=== PATIENT | female | born 1960 | race Caucasian/White ===

== ENCOUNTER 2016-12-01 19:44 | Emergency (ER) | payer OTHER ==
[~2016-12-01] VITALS: Ht 170.2 cm; Wt 113.4 kg
[~2016-12-01 19:44] MED LIST: ABILIFY5 M1 PO; ALPRAZOLAM0.5 MG PO; ATORVASTATIN CA20 MG PO; BALANCED B COM1 EACH PO; COENZYME Q PO; CYMBALTA 30 MG30 MG PO; DULOXETINE HYDR30 MG PO; DULOXETINE30 MG PO; FOLIC ACID 1 MG PO; HYDROCHLOROTHIA50 M1 PO; LEXAPRO20 M1 PO; LINZESS145 MC1 PO; MASON NATURAL1200 MG PO; NEURONTIN400 MG PO; PAXIL40 MG PO; PRILOSEC 20MG C20 MG PO; TOPAMAX50 M1; TRAZODONE100 MG PO; VITAMIN B1100 MG PO; VITAMIN E400 IU PO; XANAX0.5 MG PO
[2016-12-01 20:15] VITALS: BP 00/00
--- NOTE | 2016-12-01 20:21 | ED CRITICAL CARE ---
History of Present Illness General Chief Complaint: Cardiopulmonary Resuscitation Stated Complaint: BIBA FOR CPR Source: EMS Exam Limitations: unable to give history Vital Signs & Intake/Output Vital Signs & Intake/Output Vital Signs Date Time Temp Pulse Resp B/P B/P Pulse O2 O2 Flow FiO2 Mean Ox Delivery Rate 12/01 2014 0 00/00 12/01 1954 157/86 ED Intake and Output 12/02 0000 12/01 1200 Intake Total 850 Output Total Balance 850 Intake, IV 850 Patient 250 lb Weight Weight Estimated Measurement Method Allergies Coded Allergies: ibuprofen (Intermediate, GI UPSET 12/07/15) Reconcile Medications Aripiprazole (Abilify) 5 MG TABLET 1 TAB PO DAILY MENTAL HEALTH (Reported) Escitalopram Oxalate (Lexapro) 20 MG TABLET 1 TAB PO DAILY MENTAL HEALTH ( Reported) Folic Acid 1 MG TAB 1 TAB PO DAILY SUPPLEMENT Hydrochlorothiazide 50 MG TABLET 1 TAB PO DAILY WATER PILL (Reported) Linaclotide (Linzess) 145 MCG CAPSULE 1 CAP PO DAILY IBS (Reported) Topiramate (Topamax) (Unknown Strength) TABLET (Unknown Dose) TID MENTAL HEALTH (Reported) Vitamin B Complex & Vit C No.3 (Balanced B Complex-Vit C) 1 EACH TABLET.ER 1 TAB PO DAILY SUPPLEMENT (Reported) Triage Nurses Notes Reviewed? yes Onset: LAST SEEN APPROXIMATELY 10-15 MINUTES PRIOR TO 911 CALL Duration: minute(s): Timing: single episode today Severity: severe Pain Location: UNKNOWN Method of Injury: unknown Associated Symptoms: unresponsive HPI: 56 yo woman was found by EMS apneic and asystolic at approximately 18:59. Per the medics, drug paraphenalia and empty alcohol bottles were found around her. She was asystolic and apneic upon the medics arrival. They noted copious amounts of food in oropharynx. She was intubated with a combi tube. She received epi x 6 in the field. Narcan 4mg iv in field. No effect. Glucose was 250's. She arrived in ED at 19:44. In getting history from her roomate, Bahman Jacobsen, he states, "I think she was choking on food or whatever... She started blanking out... or was OD'ing on heroin." Per her daughter, "I talked to her a few hours ago and she was fine." Past History Travel History Traveled to [place] past 21 day No Medical History Any Pertinent Medical History? see below for history Neurological: NONE EENT: NONE Cardiovascular: hypertension Respiratory: NONE Gastrointestinal: NONE Hepatic: NONE Renal: NONE Musculoskeletal: NONE Psychiatric: alcohol dependence, anxiety, depression, substance abuse Endocrine: NONE Blood Disorders: NONE Cancer(s): NONE NATIONAL EXPANSION RECRUITER/Reproductive: NONE History of MRSA: No History of VRE: No History of CDIFF: No Surgical History Surgical History: unobtainable Psychosocial History What is your primary language [place] Family History Hx Contributory? No Review of Systems Review of Systems Constitutional: Reports: no symptoms. Eyes: Reports: no symptoms. Ears, Nose, Throat, Mouth: Reports: no symptoms. Respiratory: Reports: no symptoms. Cardiovascular: Reports: no symptoms. Gastrointestinal/Abdominal: Reports: no symptoms. Genitourinary: Reports: no symptoms. Musculoskeletal: Reports: no symptoms. Skin: Reports: no symptoms. Neurological/Psychological: Reports: no symptoms. All Other Systems: Reviewed and Negative Comments ROS incomplete based on clinical condition. Physical Exam Physical Exam General Appearance: well developed/nourished, intubated Head: atraumatic, normal appearance Eyes: Bilateral: other (fixed,dilatedpupils,no reflex). Ears, Nose, Throat, Mouth: et tube in place Neck: no jvd Respiratory: breath sounds equal to BMV. Cardiovascular: 2+femoral pulses with chest compression. Pt asystolic without compressions. Pt apneic without BMV. , no heart sounds without chest compressions Gastrointestinal: normal bowel sounds, soft Back: normal inspection, normal range of motion Extremities: normal range of motion Neurologic/Psych: unresponsive, no spontaneous breathing. No spontaneous movement. Skin: mottled, pallor Core Measures ACS in differential dx? No CVA/TIA Diagnosis: No Severe Sepsis Present: No Septic Shock Present: No Progress Differential Diagnoses I considered the following diagnoses in my evaluation of the patient: Aspiration vs drug overdose vs pneumonia vs other. Plan of Care: see below... pt pronounced at 20:15... case accepted by certified medical records coder. Initial ED EKG: none Rhythm Strip: wide complex, bradycardic, without pulse, consistent with PEA upon arrival. Comments: bedside u/s by ed md... after epi's, pt had brief episode of myocardial contractility, during few moments of ROSC. No myocardial contractility upon prouncing her . Departure Departure Disposition: Condition: Stable Clinical Impression Primary Impression: Cardiac arrest Referrals: JOSE LUIS HOANG,JAYLEEN Medrano (PCP/Family) Departure Forms: General Discharge Information Critical Care Note Critical Care Note Critical Care Time: 30-74 min Comments: pt arrived 19:44, after 45 minutes in the field. pt given epi x 4, 1 liter NS as fluses, 2 bicarb amps. Pt had brief episode of ROSC with sbp in 150's. Amio 300m iv x 1 given. Pt had brief episode of bradycardia, given atropin 1 amp x 2. Pt pronounced at 20:15. Total "code time" approximately 1.5 hours. drivers license examiner contacted who accepted case. Discussed at length with family.
== END 2016-12-01 20:15 | disposition expired ==
LOC: ERH 19:44
DX: I46.9 Cardiac arrest, cause unspecified (principal)
CPT/HCPCS: 1387; 94799; 96374; 96375; 99291